=== PATIENT | female | born 1990 | race Caucasian/White ===

== ENCOUNTER 2016-09-18 12:00 | Emergency (ER) | payer OTHER ==
[2016-09-18 12:08] VITALS: O2SAT 100
[2016-09-18] MEDS ORDERED: TYLENOL 325 MG PO ONE (12:16)
[2016-09-18] MEDS ORDERED: TYLENOL 325 MG ONE (12:22)
--- NOTE | 2016-09-18 12:24 | ERPHSYRPT ---
- History of Present Illness Time Seen by Provider: 09/18/16 12:11 Source: patient Exam Limitations: no limitations Patient Subjective Stated Complaint: pt co pain to right thumb after work, slight sweling, also co left earache for a couple days Triage Nursing Assessment: pt alert resp easy, skin w/d .pink. walked , pt has not done any treatment Physician History: 26-year-old white female arrives with complaint of pain in her right dorsal hand which is worse overlying the first metacarpal phalangeal joint symptoms since yesterday. She denies any obvious injuries. Patient also states that she has been having pain in her left ear for 3 days no fevers no nausea no vomiting not otherwise ill no injuries. Past medical history includes scoliosis and spondylolisthesis. Social history positive tobacco use. Past surgical history includes cholecystectomy and tubal ligation. Occurred: yesterday Method of Injury: unknown Quality: constant Extremities Pain Location: hand: right, thumb: right Modifying Factors: Improves With: movement Associated Symptoms: other (left ear pain), No back pain, No chills, No chest discomfort, No chest pain, No dyspnea, No fever, No jaw pain, No nausea, No neck pain, No sweating, No short of breath, No vomiting Allergies/Adverse Reactions: Sulfa (Sulfonamide Antibiotics) Allergy (Verified 09/18/16 12:10) Hx Tetanus, Diphtheria Vaccination/Date Given: Yes Hx Influenza Vaccination/Date Given: No Hx Pneumococcal Vaccination/Date Given: No Immunizations Up to Date: Yes - Review of Systems Constitutional: No Fever, No Chills Eyes: No Symptoms Ears, Nose, & Throat: Ear Pain (left ear pain), No Ear Discharge, No Hearing Changes, No Tinnitus, No Nose Pain, No Nose Congestion, No Nose Discharge, No Sinus Drainage, No Epistaxis, No Mouth Pain, No Mouth Swelling, No Loose Teeth, No Throat Pain, No Throat Swelling, No Hoarse, No Painful Swallowing, No Snoring , No Stridor Respiratory: No Cough, No Dyspnea Cardiac: No Chest Pain, No Edema, No Syncope Abdominal/Gastrointestinal: No Abdominal Pain, No Nausea, No Vomiting, No Diarrhea Genitourinary Symptoms: No Dysuria Musculoskeletal: Other (pain left hand overlying dorsal left metacarpal phalyngeal boint#1 worse with moving and palpation) Skin: No Rash Neurological: No Dizziness, No Focal Weakness, No Sensory Changes Psychological: No Symptoms Endocrine: No Symptoms All Other Systems: Reviewed and Negative - Past Medical History Pertinent Past Medical History: No Other Medical History: scoliosis, spondylolisthesis - Past Surgical History Past Surgical History: Yes (she has) Gastrointestinal: Cholecystectomy Female Surgical History: Tubal Ligation - Social History Smoking Status: Current every day smoker Exposure to second hand smoke: Yes Drug Use: none Patient Lives Alone: No Significant Family History: no pertinent family hx - Female History Hx Last Menstrual Period: september 02 - Nursing Vital Signs Nursing Vital Signs: Initial Vital Signs Temperature 97.5 F 09/18/16 12:03 Pulse Rate 62 09/18/16 12:03 Respiratory Rate 16 09/18/16 12:03 Blood Pressure 111/62 09/18/16 12:03 O2 Sat by Pulse Oximetry 100 09/18/16 12:03 Pain Scale Pain Intensity 8 - Physical Exam General Appearance: alert Eyes, Ears, Nose, Throat Exam: moist mucous membranes, other (left ear tender with palpation anterior ear near tragus small amount of cerumen in left ear both tympanic membranes visualized and non-erythematous) Neck Exam: non-tender, supple Cardiovascular/Respiratory Exam: chest non-tender, normal breath sounds, regular rate/rhythm, no respiratory distress Abdominal Exam: non-tender, No guarding Back Exam: normal inspection, No vertebral tenderness Shoulder Exam: normal inspection, non-tender, no evidence of injury, normal ROM Elbow/Forearm Exam: normal inspection, non-tender, no evidence of injury, normal ROM Wrist Exam: normal inspection, non-tender, no evidence of injury, normal ROM Hand Exam: No normal inspection (right hand with tenderness to palpation dorsally overlying first metacarpal and metacarpal phalangeal joint, pain with motion right first metacarpal phalangeal joint. Full range of motion all fingers sensation intact to all fingers radial and ulnar pulses intact and symmetrical 2 over 4 good capillary refill all fingers sensation intact to all fingers) Neuro/Tendon Exam: normal sensation, normal motor functions Mental Status Exam: alert, oriented x 3, cooperative Skin Exam: normal color, warm, dry SpO2 Interpretation: normal (100%) SpO2: 100 Oxygen Delivery: Room Air - Course Nursing assessment & vital signs reviewed: Yes - Radiology Exams Right Hand X-ray Interpretation: Discussed w/ radiologist, No Fracture, No Subluxation, Other (x-ray right hand: No bony, articular, or soft tissue abnormalities) Ordered Tests: Active Orders 24 hr Category Date Time Status Splint STAT Care 09/18/16 12:40 Active HAND (MINIMUM 3 VIEWS) Stat Exams 09/18/16 12:16 Completed Medication Summary Discontinued Medications Generic Name Dose Route Start Last Admin Trade Name Aj PRN Reason Stop Dose Admin Acetaminophen 650 mg 09/18/16 12:16 09/18/16 12:23 Tylenol 325 Mg PO 09/18/16 12:17 650 mg STAT ONE Administration Acetaminophen Confirm 09/18/16 12:22 Tylenol 325 Mg Administered 09/18/16 12:23 Dose 650 mg .ROUTE .Dropbox-MED ONE - Progress Progress: improved Progress Note: 09/18/16 12:24 26-year-old white female with history of scoliosis and spondylolisthesis she arrives with complaint of pain in her right hand overlying the dorsal right first metacarpal phalangeal joint and right first metacarpal this is worse with palpation and movement there are no obvious deformities she has full range of motion all fingers sensation intact to all fingers good capillary refill to all fingers radial and ulnar pulses are intact and symmetrical 2 over 4. She also states she's been having pain on her left ear his appears to be located in the anterior canal and along the tragus she does state that she has been swimming there is slight pain with traction of the auricle. Both tympanic membranes are visualized and reaves and intact. . Patient has not taken any Tylenol or Advil Will give patient Tylenol at her request she states she really doesn't like to take any oral medications. Will go ahead and obtain an x-ray of the patient's right hand as well. 09/18/16 12:37 X-ray patient's right hand is negative. Will arrange for a splint for the patient's right thumb. And place patient on Tylenol and Advil for pain. Will also write for Cortisporin otic suspension 4 drops left ear 4 times a day for 5 days - Departure Time of Disposition: 12:41 Departure Disposition: Home Clinical Impression: tendinitis, Pain of right thumb Otitis externa Qualifiers: Otitis externa type: unspecified type Chronicity: acute Laterality: left Qualified Code(s): H60.502 - Unspecified acute noninfective otitis externa, left ear Condition: Fair Critical Care Time: No Referrals: FIOR TAYLOR [Primary Care Provider] - Additional Instructions: Return home. Cold packs to left thumb 24-48 hours. Wear splint left thumb 48-72 hours. Cortisporin otic suspension 4 drops left ear 4 times a day for 5 days. Tylenol every 4 hours or Advil every 6 hours as needed for pain. Follow-up with your family doctor if symptoms are worse, no better in 48 hours, or persist longer than one week. Return for acute distress or for severe symptoms. Limited use right hand 48-72 hours. Stop Smoking Prescriptions: Mihai/Baci/Poly/Hc Ear Susp [Cortisporin Ear Drops 10 ml Suspension] 4 drops OT QID #1 bottle
--- NOTE | 2016-09-18 12:35 | XRAY ---
Indication: First MCP pain. No known injury. Comparison: None 3 views of the right hand obtained. No bony, articular, or soft tissue abnormalities.
[2016-09-18 13:11] VITALS: BP 117/60; PULSE 73
== END 2016-09-18 13:09 | disposition home or self-care (01) ==
LOC: ED 12:00
DX: H60.502 Unspecified acute noninfective otitis externa, left ear (principal); M77.9 Enthesopathy, unspecified; M25.541 Pain in joints of right hand; Y93.11 Activity, swimming
CPT/HCPCS: 73130; 99284; A9270-GY

== ENCOUNTER 2016-09-24 06:53 | Emergency (ER) | payer OTHER ==
[2016-09-24] MEDS ORDERED: SUBLIMAZE 100 MCG/2 ML IV ONE ×2 (07:20→09:01)
[2016-09-24] MEDS ORDERED: TORAdol 30 mg Injection IV ONE (07:20)
[2016-09-24] MEDS ORDERED: Sodium Chloride 0.9% 1000 ML 1,000 ML IV STA (07:20)
[2016-09-24] MEDS ORDERED: BENADRYL 50 MG/ML IV ONE (07:20)
[2016-09-24] MEDS ORDERED: BENADRYL 50 MG/ML ONE (07:23)
[2016-09-24] MEDS ORDERED: TORAdol 30 mg Injection ONE (07:23)
[2016-09-24] MEDS ORDERED: Sodium Chloride 0.9% 1000 ML 1,000 ML ONE (07:24)
[2016-09-24] MEDS ORDERED: SUBLIMAZE 100 MCG/2 ML ONE ×2 (07:24→08:59)
[2016-09-24 07:27] LABS: BASOPHIL % 0.2 % (0.0-0.4); Eosinophil % 1.9 % (0.00-5.0); Granulocytes % 67.2 % (36.0-66.0); Lymphocytes % 20.4 % (24.0-44.0); Mean Cell Volume 92.3 fl (78-100); Mean Corpuscular Hemoglobin 30.3 pg (26-32); Monocytes % 10.3 % (0.0-12.0); Platelet Count 313 K/mm3 (150-450); Red Blood Count 4.42 M/mm3 (4.1-5.4); Red Cell Distribution Width 12.7 % (11.5-14.0); White Blood Count 12.9 K/mm3 (4.0-10.5)
--- NOTE | 2016-09-24 07:48 | ERPHSYRPT ---
- History of Present Illness Time Seen by Provider: 09/24/16 07:06 Source: patient Patient Subjective Stated Complaint: reports onset of intense pressure diffusely in the lower abd onset about midnight last night - states that she has some dysuria - reports intercourse just before the pain also - reports discomfort within the vagina as well Triage Nursing Assessment: ambulatory to treatment area - steady gait - moves all extremities with equal strength. skin pwd - no rash/injury appreciated. resps easy - non-labored. alert/oriented - tearful affect Physician History: CC: abd pain HX; 26 y/o healthy patient of Dr Taylor with prior BTL and LMP September 02. She had intercourse in the night and had severe left lower abdominal pain starting about 30 minutes afterwards. Chronic clear discharge. 3 young children. She has pain with urination. No fever or chills. No vomiting. No hx of pain like this in the past. Pain is severe. No new sexual partners. Timing/Duration: today Activites at Onset: sexual activity Severity of Pain-Max: severe Severity of Pain-Current: severe Allergies/Adverse Reactions: Sulfa (Sulfonamide Antibiotics) Allergy (Verified 09/24/16 06:58) Home Medications: No Reportable Medications [No Reported Medications] 09/24/16 [History] Hx Tetanus, Diphtheria Vaccination/Date Given: Yes Hx Influenza Vaccination/Date Given: No Hx Pneumococcal Vaccination/Date Given: No - Review of Systems Constitutional: No Fever, No Chills Eyes: No Symptoms Ears, Nose, & Throat: No Symptoms Respiratory: No Cough Cardiac: No Chest Pain Abdominal/Gastrointestinal: Abdominal Pain (left lower), No Nausea, No Vomiting Genitourinary Symptoms: Dysuria, Vaginal Discharge (chronic), No , No Vaginal Bleeding Skin: No Rash Neurological: No Headache All Other Systems: Reviewed and Negative - Past Medical History Pertinent Past Medical History: No Other Medical History: scoliosis, spondylolisthesis - Past Surgical History Past Surgical History: Yes (she has) Gastrointestinal: Cholecystectomy Female Surgical History: Tubal Ligation - Social History Smoking Status: Current every day smoker Exposure to second hand smoke: No Drug Use: none Patient Lives Alone: No Significant Family History: no pertinent family hx - Female History Hx Last Menstrual Period: 08/03/2016 - Nursing Vital Signs Nursing Vital Signs: Initial Vital Signs Temperature 98.2 F 09/24/16 07:03 Pulse Rate 84 09/24/16 07:03 Respiratory Rate 14 09/24/16 07:03 Blood Pressure 142/81 09/24/16 07:03 O2 Sat by Pulse Oximetry 98 09/24/16 07:03 Pain Scale Pain Intensity 2 - Physical Exam General Appearance: alert, other (anxious, writhing on the bed, uncomfortable appearing) Eye Exam: PERRL/EOMI Ears, Nose, Throat Exam: moist mucous membranes Neck Exam: normal inspection, non-tender, supple Respiratory Exam: normal breath sounds, lungs clear Cardiovascular Exam: regular rate/rhythm Gastrointestinal/Abdomen Exam: soft, No tenderness, No distention, No mass, No guarding Pelvic Exam: normal external exam, adnexal tenderness (left), cervical motion tenderness (severe), other (punctate cervical eccymosis), No vaginal bleeding Back Exam: normal inspection, normal range of motion Extremity Exam: normal inspection, normal range of motion Neurologic Exam: alert, oriented x 3, cooperative, sensation nml, No motor deficits Skin Exam: warm, dry, No rash SpO2 Interpretation: normal SpO2: 98 Oxygen Delivery: Room Air - Course Nursing assessment & vital signs reviewed: Yes - Radiology Ultrasound Exam pelvic Ultrasound: Other (per RDMS: right ovary without flow consistent with torsion, free fluid around right adnexa and in RUQ. There is collapsed left ovarian cyst. ) Ordered Tests: Active Orders 24 hr Category Date Time Status Cath for Specimen-Straight STAT Care 09/24/16 07:12 Active IV Insertion STAT Care 09/24/16 07:12 Active IV Insertion-2nd Peripheral STAT Care 09/24/16 09:14 Active NPO (ED) STAT Care 09/24/16 07:12 Active Pelvic Exam Assist STAT Care 09/24/16 07:12 Active PELVIS TRANS VAGINAL [US] Stat Exams 09/24/16 07:34 Ordered CBC W DIFF Stat Lab 09/24/16 07:10 Completed CMP Stat Lab 09/24/16 07:10 Completed HCG QUALITATIVE,SERUM Stat Lab 09/24/16 07:10 Completed UA W/RFX UR CULTURE Stat Lab 09/24/16 07:30 Completed Urine Triage Profile Stat Lab 09/24/16 07:34 Completed Wet Prep Stat Lab 09/24/16 07:30 Completed Medication Summary Generic Name Dose Route Start Last Admin Trade Name Freq PRN Reason Stop Dose Admin Lactated Ringer's 1,000 mls @ 100 mls/hr 09/24/16 09:30 09/24/16 09:29 Lactated Ringers IV 10/24/16 09:29 100 mls/hr .Q10H LISA Administration Discontinued Medications Generic Name Dose Route Start Last Admin Trade Name Aj PRN Reason Stop Dose Admin Diphenhydramine HCl 25 mg 09/24/16 07:20 09/24/16 07:32 Benadryl 50 Mg/Ml IV 09/24/16 07:21 25 mg STAT ONE Administration Diphenhydramine HCl Confirm 09/24/16 07:23 Benadryl 50 Mg/Ml Administered 09/24/16 07:24 Dose 50 mg .ROUTE .STK-MED ONE Fentanyl Citrate 50 mcg 09/24/16 07:20 09/24/16 07:32 Sublimaze 100 Mcg/2 Ml IV 09/24/16 07:21 50 mcg STAT ONE Administration Fentanyl Citrate Confirm 09/24/16 07:24 Sublimaze 100 Mcg/2 Ml Administered 09/24/16 07:25 Dose 100 mcg .ROUTE .STK-MED ONE Fentanyl Citrate Confirm 09/24/16 08:59 Sublimaze 100 Mcg/2 Ml Administered 09/24/16 09:00 Dose 100 mcg .ROUTE .STK-MED ONE Fentanyl Citrate 50 mcg 09/24/16 09:01 09/24/16 09:04 Sublimaze 100 Mcg/2 Ml IV 09/24/16 09:02 50 mcg STAT ONE Administration Sodium Chloride 1,000 mls @ 999 mls/hr 09/24/16 07:20 09/24/16 07:30 Sodium Chloride 0.9% 1000 Ml IV 09/24/16 08:20 999 mls/hr .Q1H1M STA Administration Sodium Chloride Confirm 09/24/16 07:24 Sodium Chloride 0.9% 1000 Ml Administered 09/24/16 07:25 Dose 1,000 mls @ ud .ROUTE .STK-MED ONE Ketorolac Tromethamine 15 mg 09/24/16 07:20 09/24/16 07:33 Toradol 30 Mg Injection IV 09/24/16 07:21 15 mg STAT ONE Administration Ketorolac Tromethamine Confirm 09/24/16 07:23 Toradol 30 Mg Injection Administered 09/24/16 07:24 Dose 30 mg .ROUTE .STK-MED ONE Lab/Rad Data: Laboratory Result Diagrams 09/24/16 07:10 09/24/16 07:10 Laboratory Results 09/24/16 09/24/16 09/24/16 Range/Units 07:34 07:30 07:30 WBC (4.0-10.5) K/mm3 RBC (4.1-5.4) M/mm3 Hgb (12.0-16.0) gm/dl Hct (35-47) % MCV (78-100) fl MCH (26-32) pg MCHC (32-36) g/dl RDW (11.5-14.0) % Plt Count (150-450) K/mm3 MPV (6-9.5) fl Gran % (36.0-66.0) % Lymphocytes % (24.0-44.0) % Monocytes % (0.0-12.0) % Eosinophils % (0.00-5.0) % Basophils % (0.0-0.4) % Basophils # (0-0.4) Sodium (136-145) mEq/L Potassium (3.5-5.1) mEq/L Chloride (98-107) mEq/L Carbon Dioxide (21-32) mEq/L Anion Gap (5-15) MEQ/L BUN (9-20) mg/dL Creatinine (0.55-1.30) mg/dl Estimated GFR ML/MIN Glucose (70-110) MG/DL Calcium (8.5-10.1) mg/dL Total Bilirubin (0.2-1.0) mg/dL AST (15-37) U/L ALT (12-78) U/L Alkaline Phosphatase (46-116) U/L Serum Total Protein (6.4-8.2) gm/dL Albumin (3.4-5.0) g/dL Serum , Qual (Negative) Ur Collection Type CATH Urine Color YELLOW (YELLOW) Urine Appearance CLEAR (CLEAR) Urine pH 5.0 (5-6) Ur Specific [place] 1.025 (1.005-1.025) Urine Protein NEGATIVE (Negative) Urine Ketones SMALL (NEGATIVE) Urine Blood NEGATIVE (0-5) Tucker/ul Urine Nitrite NEGATIVE (NEGATIVE) Urine Bilirubin NEGATIVE (NEGATIVE) Urine Urobilinogen NORMAL (0-1) mg/dL Ur Leukocyte Esterase NEGATIVE (NEGATIVE) Urine Glucose NEGATIVE (NEGATIVE) mg/dL WBC (Wet Prep) Few RBC (Wet Prep) Few Epi Cells (Wet Prep) Moderate Bacteria (Wet Prep) Moderate Clue Cells (Wet Prep) Few Trichomonas (Wet Prep) None Seen Budding Yeast (Wet Prp) None Seen Urine Opiates Level NEG. (NEGATIVE) Ur Methadone NEG. (NEGATIVE) Urine Barbiturates NEG. (NEGATIVE) Ur Phencyclidine (PCP) NEG. (NEGATIVE) Urine Amphetamine POS. (NEGATIVE) U Benzodiazepine Level NEG. (NEGATIVE) Urine Cocaine NEG. (NEGATIVE) Urine Marijuana (THC) POS. (NEGATIVE) Chlamydia DNA (PCR) NEGATIVE N.gonorrhoeae DNA Probe NEGATIVE Specimen Received 09/24/2016 0731 09/24/16 09/24/16 09/24/16 Range/Units 07:10 07:10 07:10 WBC 12.9 H (4.0-10.5) K/mm3 RBC 4.42 (4.1-5.4) M/mm3 Hgb 13.4 (12.0-16.0) gm/dl Hct 40.8 (35-47) % MCV 92.3 (78-100) fl MCH 30.3 (26-32) pg MCHC 32.8 (32-36) g/dl RDW 12.7 (11.5-14.0) % Plt Count 313 (150-450) K/mm3 MPV 11.0 H (6-9.5) fl Gran % 67.2 H (36.0-66.0) % Lymphocytes % 20.4 L (24.0-44.0) % Monocytes % 10.3 (0.0-12.0) % Eosinophils % 1.9 (0.00-5.0) % Basophils % 0.2 (0.0-0.4) % Basophils # 0.03 (0-0.4) Sodium 141 (136-145) mEq/L Potassium 3.4 L (3.5-5.1) mEq/L Chloride 104 (98-107) mEq/L Carbon Dioxide 23.4 (21-32) mEq/L Anion Gap 16.8 H (5-15) MEQ/L BUN 12 (9-20) mg/dL Creatinine 0.78 (0.55-1.30) mg/dl Estimated GFR > 60 ML/MIN Glucose 110 (70-110) MG/DL Calcium 9.2 (8.5-10.1) mg/dL Total Bilirubin 0.60 (0.2-1.0) mg/dL AST 16 (15-37) U/L ALT 14 (12-78) U/L Alkaline Phosphatase 73 (46-116) U/L Serum Total Protein 7.7 (6.4-8.2) gm/dL Albumin 4.6 (3.4-5.0) g/dL Serum , Qual NEGATIVE (Negative) Ur Collection Type Urine Color (YELLOW) Urine Appearance (CLEAR) Urine pH (5-6) Ur Specific [place] (1.005-1.025) Urine Protein (Negative) Urine Ketones (NEGATIVE) Urine Blood (0-5) Tucker/ul Urine Nitrite (NEGATIVE) Urine Bilirubin (NEGATIVE) Urine Urobilinogen (0-1) mg/dL Ur Leukocyte Esterase (NEGATIVE) Urine Glucose (NEGATIVE) mg/dL WBC (Wet Prep) RBC (Wet Prep) Epi Cells (Wet Prep) Bacteria (Wet Prep) Clue Cells (Wet Prep) Trichomonas (Wet Prep) Budding Yeast (Wet Prp) Urine Opiates Level (NEGATIVE) Ur Methadone (NEGATIVE) Urine Barbiturates (NEGATIVE) Ur Phencyclidine (PCP) (NEGATIVE) Urine Amphetamine (NEGATIVE) U Benzodiazepine Level (NEGATIVE) Urine Cocaine (NEGATIVE) Urine Marijuana (THC) (NEGATIVE) Chlamydia DNA (PCR) N.gonorrhoeae DNA Probe Specimen Received - Progress Progress Note: 09/24/16 07:47 Will get pelvic sono to rule out ovarian torsion. 09/24/16 09:03 Reports last meth use one week ago. THC last night. Last ate meal last evening about 12 hours ago. Sip of liquid this AM. Explained ovarian torsion and need for OR and possible removal of ovary. Spoke to Dr Grove general surgeon who advised transfer to outreach director. Paged [facility] one call outreach director for transfer to [facility]. 09/24/16 09:44 Called [facility] at 09:10, 09:25, and 09:40. Apparently they thought Dr Stern was plant taxonomy teacher for outreach director but he is actually out of town. They are finding who is plant taxonomy teacher. 09/24/16 10:04 The [facility] call reached boat painter plant taxonomy teacher. She accepts transfer to [facility]. Ambulance here. Counseled pt/family regarding: lab results, diagnosis, need for follow-up, rad results - Departure Time of Disposition: 10:04 Departure Disposition: Transfer (gynecology) Clinical Impression: Acute pelvic pain, female, Torsion of right ovary and ovarian pedicle, Polysubstance abuse Condition: Fair Critical Care Time: Yes Critical Care Time(excluding separately billable procedures): 30-74 minutes Referrals: FIOR TAYLOR [Primary Care Provider] -
[2016-09-24 07:49] LABS: ALBUMIN 4.6 g/dL (3.4-5.0); ALKALINE PHOSPHATASE 73 U/L (46-116); ANION GAP 16.8 MEQ/L (5-15); BLOOD UREA NITROGEN 12 mg/dL (9-20); CHLORIDE 104 mEq/L (98-107); Carbon Dioxide 23.4 mEq/L (21-32); Glucose 110 MG/DL (70-110); Potassium 3.4 mEq/L (3.5-5.1); SGOT/AST 16 U/L (15-37); SGPT/ALT 14 U/L (12-78); SODIUM 141 mEq/L (136-145); Total Protein 7.7 gm/dL (6.4-8.2)
[2016-09-24 07:52] LABS: Bilirubin NEGATIVE (NEGATIVE); Blood NEGATIVE Ery/ul (0-5); Collection Type CATH; Glucose NEGATIVE (NEGATIVE); Leukocyte Esterase NEGATIVE (NEGATIVE)
[2016-09-24 07:53] LABS: ADD URINE CULTURE? NO (NO); Bacteria Moderate; COMPLETE URINE MICROSCOPIC? NO; Clue Cells Few; Trichomonas None Seen; Yeast None Seen
[2016-09-24 09:05] LABS: CHLAMYDIA DNA NEGATIVE
[2016-09-24] MEDS ORDERED: Lactated Ringers 1,000 ML IV ONE (09:27)
[2016-09-24 09:30] VITALS: BP 126/74
[2016-09-24] MEDS ORDERED: Lactated Ringers 1,000 ML IV SCH (09:30)
[2016-09-24 09:58] VITALS: PULSE 62
[2016-09-24 10:05] VITALS: O2SAT 98
--- NOTE | 2016-09-25 09:41 | XRAY ---
Indication: Pelvic pain. Two-dimensional transvaginal pelvic ultrasound was performed. Comparison: October 07, 2007. Uterus is again anteverted today measuring 9.2 x 4.9 x 4.5 cm. A few tiny nabothian cysts in the lower uterine segment. Remaining myometrium homogeneous. Endometrial stripe measures 15.1 mm. No endometrial cavity mass or fluid collection. Right ovary measures 2.5 x 2.9 x 3.0 cm and the left measures 3.1 x 2.1 x 3.1 cm. A few follicular cysts bilaterally and normal left ovary perfusion. No perfusion seen of the right ovary. There is small free fluid in Morison's pouch and right adnexa. Additional fluid seen in the cul-de-sac appearing slightly echogenic/complex. Impression: 1. No perfusion documented in the right ovary. Rule out torsion. Free fluid may or may not be related. 2. Uterine nabothian cysts. Comment: Preliminary report was given.
== END 2016-09-24 10:31 | disposition short-term general hospital (02) ==
LOC: ED 06:53
DX: R10.2 Pelvic and perineal pain (principal); N83.511 Torsion of right ovary and ovarian pedicle; F19.10 Other psychoactive substance abuse, uncomplicated
CPT/HCPCS: 36000; 36415; 76830; 80053; 80307; 81002; 84703; 85025; 86850; 86900; 86901; 87210; 87490; 87590; 96360; 96361; 96374; 96375; 96376; 99285; J1200; J1885; J3010; P9612

== ENCOUNTER 2016-10-31 09:45 | Emergency (ER) | payer OTHER ==
[2016-10-31 10:00] VITALS: O2SAT 98
--- NOTE | 2016-10-31 10:05 | ERPHSYRPT ---
- History of Present Illness Time Seen by Provider: 10/31/16 09:59 Source: patient Exam Limitations: no limitations Physician History: The patient is a 26-year-old female who complains of left hip pain that began shortly after having intercourse with her 2 nights ago. It now hurts for her to move her left leg. It hurts for her to walk. She is using her mother's crutches. She took Tylenol yesterday without relief. Method of Injury: other (sexual intercourse) Occurred: days ago (2) Quality: constant, aching Severity of Pain-Max: moderate Severity of Pain-Current: moderate Lower Extremities Pain: hip: left Modifying Factors: Improves With: nothing Associated Symptoms: none Allergies/Adverse Reactions: Sulfa (Sulfonamide Antibiotics) Allergy (Verified 10/31/16 10:00) Home Medications: No Reportable Medications [No Reported Medications] 09/24/16 [History] Hx Tetanus, Diphtheria Vaccination/Date Given: Yes Hx Influenza Vaccination/Date Given: No Hx Pneumococcal Vaccination/Date Given: No - Review of Systems Constitutional: No Fever, No Chills Eyes: No Symptoms Ears, Nose, & Throat: No Symptoms Respiratory: No Cough, No Dyspnea Cardiac: No Chest Pain, No Edema, No Syncope Abdominal/Gastrointestinal: No Abdominal Pain, No Nausea, No Vomiting, No Diarrhea Genitourinary Symptoms: No Dysuria Musculoskeletal: No Back Pain, No Neck Pain Skin: No Rash Neurological: No Dizziness, No Focal Weakness, No Sensory Changes Psychological: No Symptoms Endocrine: No Symptoms Hematologic/Lymphatic: No Symptoms Immunological/Allergic: No Symptoms All Other Systems: Reviewed and Negative - Past Medical History Pertinent Past Medical History: No Other Medical History: scoliosis, spondylolisthesis - Past Surgical History Past Surgical History: Yes (she has) Gastrointestinal: Cholecystectomy Female Surgical History: Tubal Ligation - Social History Smoking Status: Current every day smoker Exposure to second hand smoke: No Drug Use: none Patient Lives Alone: No Significant Family History: no pertinent family hx - Physical Exam General Appearance: alert Eyes, Ears, Nose, Throat Exam: moist mucous membranes Neck Exam: non-tender, supple Cardiovascular/Respiratory Exam: chest non-tender, normal breath sounds, regular rate/rhythm, no respiratory distress Gastrointestinal/Abdominal Exam: non-tender, guarding Back Exam: normal inspection, No vertebral tenderness Hips Exam: right: non-tender, normal inspection, normal range of motion, left: pain, soft tissue tenderness Legs Exam: left leg: pain (left anterior thigh), soft tissue tenderness Knees Exam: bilateral knee: non-tender, normal inspection Ankle Exam: bilateral ankle: non-tender, normal inspection Foot Exam: bilateral foot: non-tender, normal inspection Neuro/Tendon Exam: normal sensation, normal motor functions Mental Status Exam: alert, oriented x 3, cooperative Skin Exam: normal color, warm, dry SpO2 Interpretation: normal - Progress Progress: improved Counseled pt/family regarding: diagnosis - Departure Time of Disposition: 10:09 Departure Disposition: Home Clinical Impression: Groin injury Condition: Stable Critical Care Time: No Referrals: FIOR TAYLOR [Primary Care Provider] - Additional Instructions: You have a groin injury that it was related to intercourse. This likely is muscle strain. Apply ice to the area 2-3 times a day for 2-3 days. Take ibuprofen 800 mg every 8 hours as needed. You were given Toradol 60 mg IM in the ER. Follow-up in one to 2 days if no improvement. You may continue to use your crutches for comfort as needed.
[2016-10-31] MEDS ORDERED: TORAdol 30 mg Injection IM ONE (10:11)
[2016-10-31] MEDS ORDERED: TORAdol 30 mg Injection ONE (10:14)
[2016-10-31 10:21] VITALS: BP 142/80; PULSE 80
== END 2016-10-31 10:24 | disposition home or self-care (01) ==
LOC: ED 09:45
DX: S39.91XA Unspecified injury of abdomen, initial encounter (principal); M25.552 Pain in left hip
CPT/HCPCS: 96372; 99284; J1885

== ENCOUNTER 2019-02-03 15:00 | Emergency (ER) | payer OTHER ==
--- NOTE | 2019-02-03 15:15 | ERPHSYRPT ---
- History of Present Illness Time Seen by Provider: 02/03/19 15:10 Historian: patient Exam Limitations: no limitations Patient Subjective Stated Complaint: UTI/ lower abdominal pain/ lower back pain Triage Nursing Assessment: Patient ambulated back to ED and transferred self to bed. Patient A+O X3. Patient's skin pink warm and dry. Patient states she has been having lower abdominal pain/back pain 11/28 since Sunday. Patient states she is having frequency and urgency with pain. Patient has been taking AZO since Sunday. Patient states she has been vomiting and having fever. Physician History: 29 y/o white female presents with 3 day h/o worsening suprapubic and bilat flank pain. denies vomiting and diarrhea. has subjective fever. denies vaginal discharge. has had frequency and urgency. pt states has h/o ruptured ovarian cysts. Timing/Duration: day(s) (3) Abdominal Pain Onset Location: suprapubic Pain Radiation: flank (bilat) Severity of Pain-Max: moderate Severity of Pain-Current: moderate Modifying Factors: Improves With: urinating. Worsens With: vomiting Associated Symptoms: nausea, No diarrhea, No fever/chills, No vomiting Previous symptoms: same symptoms as today Allergies/Adverse Reactions: Sulfa (Sulfonamide Antibiotics) Allergy (Verified 02/03/19 15:05) Hx Tetanus, Diphtheria Vaccination/Date Given: No Hx Influenza Vaccination/Date Given: No Hx Pneumococcal Vaccination/Date Given: No Immunizations Up to Date: Yes - Review of Systems Constitutional: No Symptoms Eyes: No Symptoms Ears, Nose, & Throat: No Symptoms Respiratory: No Symptoms Cardiac: No Symptoms Abdominal/Gastrointestinal: Abdominal Pain (suprapubic), Nausea Genitourinary Symptoms: Frequency, Urgency, Flank Pain Musculoskeletal: No Symptoms Skin: No Symptoms Neurological: No Symptoms Psychological: No Symptoms Endocrine: No Symptoms Hematologic/Lymphatic: No Symptoms Immunological/Allergic: No Symptoms All Other Systems: Reviewed and Negative - Past Medical History Pertinent Past Medical History: No Neurological History: No Pertinent History ENT History: No Pertinent History Cardiac History: No Pertinent History Respiratory History: No Pertinent History Endocrine Medical History: No Pertinent History Musculoskeletal History: No Pertinent History GI Medical History: No Pertinent History History: No Pertinent History Psycho-Social History: No Pertinent History Female Reproductive Disorders: No Pertinent History Other Medical History: scoliosis, spondylolisthesis - Past Surgical History Past Surgical History: Yes (she has) Neuro Surgical History: No Pertinent History Cardiac: No Pertinent History Respiratory: No Pertinent History Gastrointestinal: Cholecystectomy Genitourinary: No Pertinent History Musculoskeletal: No Pertinent History Female Surgical History: Tubal Ligation - Social History Smoking Status: Current every day smoker How long have you smoked: years Exposure to second hand smoke: Yes Drug Use: marijuana Patient Lives Alone: No Significant Family History: no pertinent family hx - Female History Hx Last Menstrual Period: Jan 19 Hx Now: No - Nursing Vital Signs Nursing Vital Signs: Initial Vital Signs Temperature 97.8 F 02/03/19 15:06 Pulse Rate 106 H 02/03/19 15:06 Respiratory Rate 18 02/03/19 15:06 Blood Pressure 115/88 02/03/19 15:06 O2 Sat by Pulse Oximetry 98 02/03/19 15:06 Pain Scale Pain Intensity 5 - Physical Exam General Appearance: mild distress, alert, anxiety, thin Eye Exam: PERRL/EOMI, eyes nml inspection Ears, Nose, Throat Exam: normal ENT inspection, moist mucous membranes Neck Exam: normal inspection, non-tender, supple, full range of motion Respiratory Exam: normal breath sounds, lungs clear, airway intact, No chest tenderness, No respiratory distress Cardiovascular Exam: regular rate/rhythm, normal heart sounds, normal peripheral pulses Gastrointestinal/Abdomen Exam: soft, normal bowel sounds, tenderness (mild suprapubic), guarding, No rebound Pelvic Exam: not done Back Exam: normal inspection, normal range of motion, No CVA tenderness, No vertebral tenderness Extremity Exam: normal inspection, normal range of motion, pelvis stable Neurologic Exam: alert, oriented x 3, 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, 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 Skin Exam: normal color, warm, dry Lymphatic Exam: No adenopathy SpO2 Interpretation: normal SpO2: 98 O2 Delivery: Room Air Ordered Tests: Active Orders 24 hr Category Date Time Status IV Insertion STAT Care 02/03/19 16:01 Active ABDOMEN AND PELVIS W/0 CONTRAS [CT] Stat Exams 02/03/19 16:02 Completed AMYLASE Stat Lab 02/03/19 16:01 Completed CBC W DIFF Stat Lab 02/03/19 16:01 Completed CMP Stat Lab 02/03/19 16:01 Completed CULTURE,URINE Stat Lab 02/03/19 16:14 Received HCG,QUALITATIVE URINE Stat Lab 02/03/19 16:14 Completed LIPASE Stat Lab 02/03/19 16:01 Completed Lactic Acid Stat Lab 02/03/19 16:10 Completed Manual Differential NC Stat Lab 02/03/19 16:01 Completed UA W/RFX UR CULTURE Stat Lab 02/03/19 16:14 Completed Medication Summary Discontinued Medications Generic Name Dose Route Start Last Admin Trade Name Chrisq PRN Reason Stop Dose Admin Ciprofloxacin 500 mg 02/03/19 16:55 02/03/19 17:02 Cipro 500 Mg PO 02/03/19 16:56 500 mg STAT ONE Administration Ciprofloxacin Confirm 02/03/19 17:00 Cipro 500 Mg Administered 02/03/19 17:01 Dose 500 mg .ROUTE .STK-MED ONE Hydromorphone HCl 0.5 mg 02/03/19 16:01 02/03/19 16:09 Hydromorphone 1 Mg/Ml Ampule IV 02/03/19 16:02 0.5 mg STAT ONE Administration Hydromorphone HCl Confirm 02/03/19 16:06 Hydromorphone 1 Mg/Ml Ampule Administered 02/03/19 16:07 Dose 1 mg .ROUTE .STK-MED ONE Sodium Chloride 1,000 mls @ 999 mls/hr 02/03/19 16:01 02/03/19 17:26 Sodium Chloride 0.9% 1000 Ml IV 02/03/19 17:01 Infused .Q1H1M STA Infusion Sodium Chloride Confirm 02/03/19 16:06 Sodium Chloride 0.9% 1000 Ml Administered 02/03/19 16:07 Dose 1,000 mls @ ud .ROUTE .STK-MED ONE Ceftriaxone Sodium/Dextrose 1 g in 50 mls @ 100 mls/hr 02/03/19 16:53 17:27 Rocephin 1 Gm-D5w 50 Ml Bag IV 02/03/19 17:22 Infused STAT STA Infusion Ceftriaxone Sodium/Dextrose Confirm 02/03/19 17:01 Rocephin 1 Gm-D5w 50 Ml Bag Administered 02/03/19 17:02 Dose 1 g in 50 mls @ ud IV .STK-MED ONE Ondansetron HCl 4 mg 02/03/19 16:01 02/03/19 16:09 Zofran 4 Mg/2 Ml Vial IV 02/03/19 16:02 4 mg STAT ONE Administration Ondansetron HCl Confirm 02/03/19 16:06 Zofran 4 Mg/2 Ml Vial Administered 02/03/19 16:07 Dose 4 mg .ROUTE .STK-MED ONE Lab/Rad Data: Laboratory Result Diagrams 02/03/19 16:01 02/03/19 16:01 Laboratory Results 02/03/19 02/03/19 02/03/19 Range/Units 16:14 16:14 16:10 WBC (4.0-10.5) K/mm3 RBC (4.1-5.4) M/mm3 Hgb (12.0-16.0) gm/dl Hct (35-47) % MCV (78-100) fl MCH (26-32) pg MCHC (32-36) g/dl RDW (11.5-14.0) % Plt Count (150-450) K/mm3 MPV (6-9.5) fl Sodium (137-145) mmol/L Potassium (3.5-5.1) mmol/L Chloride (98-107) mmol/L Carbon Dioxide (22-30) mmol/L Anion Gap (5-15) MEQ/L BUN (7-17) mg/dL Creatinine (0.52-1.04) mg/dL Estimated GFR ML/MIN Glucose (74-106) mg/dL Lactic Acid 1.4 (0.4-2.0) Calcium (8.4-10.2) mg/dL Total Bilirubin (0.2-1.3) mg/dL AST (14-36) U/L ALT (0-35) U/L Alkaline Phosphatase (38-126) U/L Serum Total Protein (6.3-8.2) g/dL Albumin (3.5-5.0) g/dL Amylase (30-110) U/L Lipase (23-300) U/L Urine Color THIAGO (YELLOW) Urine Appearance CLOUDY (CLEAR) Urine pH 5.0 (5-6) Ur Specific [place] 1.009 (1.005-1.025) Urine Protein 100 (Negative) Urine Ketones SMALL (NEGATIVE) Urine Blood MODERATE (0-5) Tucker/ul Urine Nitrite NEGATIVE (NEGATIVE) Urine Bilirubin NEGATIVE (NEGATIVE) Urine Urobilinogen NEGATIVE (0-1) mg/dL Ur Leukocyte Esterase LARGE (NEGATIVE) Urine WBC (Auto) >100 (0-5) /HPF Urine RBC (Auto) 16-25 (0-2) /HPF U Epithel Cells (Auto) MANY (FEW) /HPF Urine Bacteria (Auto) MODERATE (NEGATIVE) /HPF Urine Mucus (Auto) SLIGHT (NEGATIVE) /HPF Urine Culture Reflexed YES (NO) Urine Glucose NEGATIVE (NEGATIVE) mg/dL Urine HCG, Qual NEGATIVE (Negative) 02/03/19 02/03/19 Range/Units 16:01 16:01 WBC 15.5 H (4.0-10.5) K/mm3 RBC 4.53 (4.1-5.4) M/mm3 Hgb 13.9 (12.0-16.0) gm/dl Hct 41.9 (35-47) % MCV 92.5 (78-100) fl MCH 30.7 (26-32) pg MCHC 33.2 (32-36) g/dl RDW 13.4 (11.5-14.0) % Plt Count 288 (150-450) K/mm3 MPV 11.2 H (6-9.5) fl Sodium 137 (137-145) mmol/L Potassium 3.8 (3.5-5.1) mmol/L Chloride 99 (98-107) mmol/L Carbon Dioxide 21 L (22-30) mmol/L Anion Gap 20.2 H (5-15) MEQ/L BUN 15 (7-17) mg/dL Creatinine 1.61 H (0.52-1.04) mg/dL Estimated GFR 40.8 ML/MIN Glucose 79 (74-106) mg/dL Lactic Acid (0.4-2.0) Calcium 9.9 (8.4-10.2) mg/dL Total Bilirubin 0.80 (0.2-1.3) mg/dL AST 33 (14-36) U/L ALT 13 (0-35) U/L Alkaline Phosphatase 94 (38-126) U/L Serum Total Protein 8.2 (6.3-8.2) g/dL Albumin 4.7 (3.5-5.0) g/dL Amylase 48 (30-110) U/L Lipase 24 (23-300) U/L Urine Color (YELLOW) Urine Appearance (CLEAR) Urine pH (5-6) Ur Specific [place] (1.005-1.025) Urine Protein (Negative) Urine Ketones (NEGATIVE) Urine Blood (0-5) Tucker/ul Urine Nitrite (NEGATIVE) Urine Bilirubin (NEGATIVE) Urine Urobilinogen (0-1) mg/dL Ur Leukocyte Esterase (NEGATIVE) Urine WBC (Auto) (0-5) /HPF Urine RBC (Auto) (0-2) /HPF U Epithel Cells (Auto) (FEW) /HPF Urine Bacteria (Auto) (NEGATIVE) /HPF Urine Mucus (Auto) (NEGATIVE) /HPF Urine Culture Reflexed (NO) Urine Glucose (NEGATIVE) mg/dL Urine HCG, Qual (Negative) - Progress Progress: improved, pain not gone completely, re-examined Progress Note: 02/03/19 17:31 ct abd/pelvis-appendicolith without acute appendicitis. no acute process Counseled pt/family regarding: lab results, diagnosis, need for follow-up, rad results - Departure Departure Disposition: Home Clinical Impression: UTI (urinary tract infection) Condition: Stable Critical Care Time: No Referrals: FIOR TAYLOR [Primary Care Provider] - Additional Instructions: drink plenty of fluids. tylenol and ibuprofen for fever and pain. follow up with primary doctor for persistent symptoms Prescriptions: Ciprofloxacin [Cipro 500 MG] 500 mg PO BID #20 tablet
[2019-02-03] MEDS ORDERED: Sodium Chloride 0.9% 1000 ML 1,000 ML IV STA (16:01)
[2019-02-03] MEDS ORDERED: Zofran 4 MG/2 ML VIAL IV ONE (16:01)
[2019-02-03] MEDS ORDERED: Hydromorphone 1 mg/ml Ampule IV ONE (16:01)
[2019-02-03] MEDS ORDERED: Hydromorphone 1 mg/ml Ampule ONE (16:06)
[2019-02-03] MEDS ORDERED: Zofran 4 MG/2 ML VIAL ONE (16:06)
[2019-02-03] MEDS ORDERED: Sodium Chloride 0.9% 1000 ML 1,000 ML ONE (16:06)
[2019-02-03 16:17] LABS: Hematocrit 41.9 % (35-47); Hemoglobin 13.9 gm/dl (12.0-16.0); Mean Cell Volume 92.5 fl (78-100); Mean Corpuscular Hemoglobin 30.7 pg (26-32); Mean Corpuscular Hgb Concent. 33.2 g/dl (32-36); Mean Platelet Volume 11.2 fl (6-9.5); Platelet Count 288 K/mm3 (150-450); Red Blood Count 4.53 M/mm3 (4.1-5.4); Red Cell Distribution Width 13.4 % (11.5-14.0); White Blood Count 15.5 K/mm3 (4.0-10.5)
[2019-02-03 16:22] LABS: ALBUMIN 4.7 g/dL (3.5-5.0); ANION GAP 20.2 MEQ/L (5-15); BILIRUBIN,TOTAL 0.8 mg/dL (0.2-1.3); Calcium 9.9 mg/dL (8.4-10.2); Creatinine 1 1.61 mg/dL (0.52-1.04); Potassium 3.8 mmol/L (3.5-5.1); Total Protein 8.2 g/dL (6.3-8.2)
[2019-02-03 16:23] LABS: Appearance CLOUDY (CLEAR); Bacteria MODERATE /HPF (NEGATIVE); Bilirubin NEGATIVE (NEGATIVE); Blood MODERATE Ery/ul (0-5); Epithelial Cells MANY /HPF (FEW); Glucose NEGATIVE (NEGATIVE); Ketones SMALL (NEGATIVE); Leukocyte Esterase LARGE (NEGATIVE); Mucus SLIGHT /HPF (NEGATIVE); Nitrite NEGATIVE (NEGATIVE); Protein,Urine Dip 100 (Negative); Specific Gravity 1.009 (1.005-1.025); Urobilinogen NEGATIVE mg/dL (0-1); WBC >100 /HPF (0-5)
[2019-02-03] MEDS ORDERED: ROCEPHIN 1 Gm-D5w 50 ml Bag** 1 G/50 ML IVPB IV STA (16:53)
[2019-02-03] MEDS ORDERED: Cipro 500 MG PO ONE (16:55)
[2019-02-03] MEDS ORDERED: Cipro 500 MG ONE (17:00)
[2019-02-03] MEDS ORDERED: ROCEPHIN 1 Gm-D5w 50 ml Bag** 1 G/50 ML IVPB IV ONE (17:01)
--- NOTE | 2019-02-03 17:27 | XRAY ---
Indication: Low back and abdomen pain. UTI. Multiple contiguous axial images obtained through abdomen and pelvis without contrast as ordered. Comparison: None Lung bases are clear. Heart is not enlarged. Noncontrasted stomach and bowel loops appear nonobstructed. Appendix demonstrates appendicolith without appendicitis. Mild sigmoid diverticulosis. Previous cholecystectomy. No free fluid/air. Remaining liver, pancreas, spleen, adrenal glands, kidneys, ureters, bladder, uterus, and aorta appear unremarkable for noncontrast exam. Osseous structures demonstrates bilateral L5 spondylolysis with 1 cm spondylolisthesis. Impression: 1. Appendicolith without gross acute appendicitis on this noncontrast exam. 2. Sigmoid diverticulosis. 3. Bilateral L5 spondylolysis with grade 2 spondylolisthesis. CTDI 2.60
[2019-02-03 17:33] VITALS: O2SAT 98
[2019-02-03] MEDS ORDERED: TORAdol 30 mg Injection IV ONE (17:34)
[2019-02-03] MEDS ORDERED: TORAdol 30 mg Injection ONE (17:36)
[2019-02-03 17:54] LABS: BAND 9 % (0.0-2.0); Lymphocytes 11 % (24-44); Monocyte 5 % (0.0-12.0); Neutrophils 75 % (36.0-66.0); Total Cells Counted 100
[2019-02-03 17:55] LABS: Platelet Estimate NORMAL (NORMAL)
[2019-02-03 18:00] VITALS: BP 111/61; PULSE 102
== END 2019-02-03 18:01 | disposition home or self-care (01) ==
LOC: ED 15:00
DX: N39.0 Urinary tract infection, site not specified (principal); R10.30 Lower abdominal pain, unspecified; M54.5 Low back pain; R35.0 Frequency of micturition; R39.15 Urgency of urination
CPT/HCPCS: 36000; 36415; 74176; 80053; 81001; 82150; 83605; 83690; 84703; 85025; 87077; 87086; 87186; 96360; 96365; 96374; 96375; 99284; J0696; J1170; J1885; J2405; A9270-GY

== ENCOUNTER 2021-07-24 12:19 | Emergency (ER) | payer OTHER ==
[2021-07-24 12:34] VITALS: BP 102/78; PULSE 74; O2SAT 96
--- NOTE | 2021-07-24 12:56 | ERPHSYRPT ---
- History of Present Illness Source: patient Exam Limitations: no limitations Patient Subjective Stated Complaint: pt reports exposure to poison [place] or [place] 2 days ago she noticed a red raised itchy rash starting on her chest and spreading now to her face, neck, and groin. pt denies any pain, shortness of breath. Triage Nursing Assessment: pt is aox3, pupils perrl, afebrile, resps easy and non labored, cap refill < 3 seconds, pt skin pink warm dry. diffuse red rasied rash with draining vesicles. pt with slight swelling to the right under eye. Physician History: 31 yo wf w diffuse, pruritic rash x 2 days. [place] the day [place] the park 2 [place]. No other symptoms at this time. Timing/Duration: day(s) (2 days) Quality: itchy Location: generalized Possible Causes: other (Poison [place]ac[place]) Associated Symptoms: rash, No blisters, No change in skin texture, No difficulty breathing, No edema, No fever, No flushing, No headache, No hives, No malaise, No nasal congestion, No numbness, No pallor, No paresthesia, No petechiae, No sore throat, No swelling/mass/lumps, No tingling Allergies/Adverse Reactions: Sulfa (Sulfonamide Antibiotics) Allergy (Verified 07/24/21 12:34) Hx Tetanus, Diphtheria Vaccination/Date Given: Yes Hx Influenza Vaccination/Date Given: No Hx Pneumococcal Vaccination/Date Given: No Immunizations Up to Date: Yes Travel Risk - International Travel Have you traveled outside of the country in past 3 weeks: No - Coronavirus Screening Are you exhibiting any of the following symptoms?: No Close contact with a COVID-19 positive Pt in past 14-21 Days: No - Vaccine Status Have you recieved a Covid-19 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: 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: [employer] - Vaccination Dates Date of 2cond Vaccination (if applicable): unk - Review of Systems Constitutional: No Symptoms Eyes: No Symptoms Ears, Nose, & Throat: No Symptoms Respiratory: No Symptoms Cardiac: No Symptoms Abdominal/Gastrointestinal: No Symptoms Genitourinary Symptoms: No Symptoms Musculoskeletal: No Symptoms Skin: Rash Neurological: No Symptoms Psychological: No Symptoms Endocrine: No Symptoms Hematologic/Lymphatic: No Symptoms - Past Medical History Pertinent Past Medical History: No Neurological History: No Pertinent History ENT History: No Pertinent History Cardiac History: No Pertinent History Respiratory History: No Pertinent History Endocrine Medical History: No Pertinent History Musculoskeletal History: No Pertinent History GI Medical History: No Pertinent History History: No Pertinent History Psycho-Social History: No Pertinent History Female Reproductive Disorders: No Pertinent History Other Medical History: scoliosis, spondylolisthesis - Past Surgical History Past Surgical History: Yes (she has) Neuro Surgical History: No Pertinent History Cardiac: No Pertinent History Respiratory: No Pertinent History Gastrointestinal: Cholecystectomy Genitourinary: No Pertinent History Musculoskeletal: No Pertinent History Female Surgical History: Tubal Ligation - Social History Smoking Status: Current every day smoker How long have you smoked: years Exposure to second hand smoke: Yes Drug Use: none Patient Lives Alone: No Significant Family History: no pertinent family hx - Female History Hx Last Menstrual Period: 07/20/21 Hx Now: No - Nursing Vital Signs Nursing Vital Signs: Initial Vital Signs Temperature 98 F 07/24/21 12:25 Pulse Rate 74 07/24/21 12:25 Respiratory Rate 18 07/24/21 12:25 Blood Pressure 102/78 07/24/21 12:25 O2 Sat by Pulse Oximetry 97 07/24/21 12:25 Pain Scale Pain Intensity 0 WNL - Physical Exam General Appearance: no apparent distress Eye Exam: PERRL/EOMI, eyes nml inspection Ears, Nose, Throat Exam: normal ENT inspection, TMs normal, pharynx normal, moist mucous membranes Neck Exam: normal inspection, non-tender, supple, full range of motion, No meningismus, No mass, No Brudzinski, No Kernig's, No carotid bruit Respiratory Exam: normal breath sounds, lungs clear, airway intact Cardiovascular Exam: regular rate/rhythm, normal heart sounds, normal peripheral pulses, capillary refill <2 sec, No murmur Gastrointestinal/Abdomen Exam: soft, normal bowel sounds, No tenderness Back Exam: normal inspection Extremity Exam: normal inspection Neurologic Exam: alert, oriented x 3, cooperative, 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, normal mood/affect, nml cerebellar function, nml station & gait, sensation nml, No motor deficits, No sensory deficit Skin Exam: other (Diffuse, pruritic excoriated rash, most likely poison stacie) Lymphatic Exam: No adenopathy SpO2 Interpretation: normal SpO2: 96 O2 Delivery: Room Air - Course Nursing assessment & vital signs reviewed: Yes - Progress Counseled pt/family regarding: diagnosis, need for follow-up - Departure Departure Disposition: Home Clinical Impression: Poison stacie Condition: Stable Critical Care Time: No Referrals: LIOR EDWARDS MD [Primary Care Provider] - Follow up/PCP as directed Instructions: Poison [place], Poison [place], Poison [place] (DC) Additional Instructions: [place] baths Follow up with PCP as needed Prescriptions: Hydroxyzine HCl 25 mg [Atarax 25 mg] 25 mg PO Q6-8HPRN PRN #14 tablet PRN Reason: Itching Prednisone 10 mg [Deltasone 10 mg] 10 mg PO DAILY #42 tablet
== END 2021-07-24 13:06 | disposition home or self-care (01) ==
LOC: ED 12:19
DX: L23.7 Allergic contact dermatitis due to plants, except food (principal); Z72.0 Tobacco use; Z79.52 Long term (current) use of systemic steroids
CPT/HCPCS: 99283

== ENCOUNTER 2022-11-24 11:03 | Emergency (ER) | payer OTHER ==
--- NOTE | 2022-11-24 11:11 | ERPHSYRPT ---
- History of Present Illness Time Seen by Provider: 11/24/22 11:11 Source: patient Exam Limitations: no limitations Physician History: This is a 32-year-old white female patient of Dr. Edwards who presents with shortness of air. She also has left shoulder pain after experiencing a fall 2 weeks ago. She has been seen by her primary care provider as well as [facility]. She was started on a Medrol Dosepak yesterday because of the persistent pain she is having. Last night and this morning she started having shortness of breath secondary to the pain in this area. On 11/14/2022, after her fall, she states she was supposed to have an x-ray of that left shoulder. However a thoracic spine x-ray was performed which showed no bony or soft tissue abnormality. She describes the pain as sharp and intermittent. It hurts when she takes a deep breath and that is what is causing her shortness of air. Timing/Duration: week(s) (2), intermittent, worse Severity of Dyspnea-Max: mild (To moderate with deep inspiration) Severity of Dyspnea-Current: mild (To moderate with deep inspiration) Possible Cause: no prior episodes Modifying Factors: Improves With: deep breath (Worsens pain and shortness of breath) Associated Symptoms: chest pain/discomfort (Left upper and lateral with deep inspiration), painful breathing, No calf pain, No dizziness, No productive cough Allergies/Adverse Reactions: Sulfa (Sulfonamide Antibiotics) Allergy (Verified 11/24/22 11:05) Home Medications: Methylprednisolone 4 mg [Medrol 4 mg] See Rx Instructions .ROUTE .COMPLEX 11/24/22 [History] Hx Tetanus, Diphtheria Vaccination/Date Given: Yes Hx Influenza Vaccination/Date Given: No Hx Pneumococcal Vaccination/Date Given: No Travel Risk - International Travel Have you traveled outside of the country in past 3 weeks: No - Coronavirus Screening Are you exhibiting any of the following symptoms?: No Close contact with a COVID-19 positive Pt in past 14-21 Days: No - Vaccine Status Have you recieved a Covid-19 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: 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[employer] - Vaccination Dates Date of 2cond Vaccination (if applicable): unk - Review of Systems Constitutional: No Symptoms Eyes: No Symptoms Ears, Nose, & Throat: No Symptoms Respiratory: Dyspnea (With deep inspiration) Cardiac: No Symptoms Abdominal/Gastrointestinal: No Symptoms Genitourinary Symptoms: No Symptoms Musculoskeletal: Fall, Injury (Left shoulder pain from a fall 2 weeks ago) Skin: No Symptoms Neurological: No Symptoms Psychological: No Symptoms Endocrine: No Symptoms Hematologic/Lymphatic: No Symptoms Immunological/Allergic: No Symptoms All Other Systems: Reviewed and Negative - Past Medical History Pertinent Past Medical History: No Neurological History: No Pertinent History ENT History: No Pertinent History Cardiac History: No Pertinent History Respiratory History: No Pertinent History Endocrine Medical History: No Pertinent History Musculoskeletal History: No Pertinent History GI Medical History: No Pertinent History History: No Pertinent History Psycho-Social History: No Pertinent History Female Reproductive Disorders: No Pertinent History Other Medical History: scoliosis, spondylolisthesis - Past Surgical History Past Surgical History: Yes (she has) Neuro Surgical History: No Pertinent History Cardiac: No Pertinent History Respiratory: No Pertinent History Gastrointestinal: Cholecystectomy Genitourinary: No Pertinent History Musculoskeletal: No Pertinent History Female Surgical History: Tubal Ligation - Social History Smoking Status: Current every day smoker How long have you smoked: years Exposure to second hand smoke: Yes Drug Use: none Patient Lives Alone: No Significant Family History: no pertinent family hx - Nursing Vital Signs Nursing Vital Signs: Initial Vital Signs Temperature 98.3 F 11/24/22 11:04 Pulse Rate 100 H 11/24/22 11:04 Respiratory Rate 19 11/24/22 11:04 Blood Pressure 139/105 11/24/22 11:04 O2 Sat by Pulse Oximetry 99 11/24/22 11:04 Pain Scale Pain Intensity 0 - Physical Exam General Appearance: no apparent distress, alert, anxiety, thin Eye Exam: PERRL/EOMI, eyes nml inspection Ears, Nose, Throat Exam: hearing grossly normal, normal ENT inspection, normal pharynx Neck Exam: normal inspection, non-tender, supple, full range of motion Respiratory Exam: normal breath sounds, lungs clear, respiratory distress, airway intact, No chest tenderness Cardiovascular/Chest Exam: normal heart sounds, regular rate/rhythm Abdominal/Gastrointestinal Exam: soft, normal bowel sounds, No tenderness Rectal Exam: not done Extremity Exam: pelvis stable, limited range of motion (Left shoulder with movement tenderness on palpation) Neurologic Exam: alert, oriented x 3, cooperative, director 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 as tested, normal mood/affect, nml cerebellar function, nml station & gait, sensation nml Skin Exam: normal color, warm, dry Lymphatic Exam: No adenopathy SpO2 Interpretation: normal O2 Delivery: Room Air - Course Nursing assessment & vital signs reviewed: Yes EKG Interpreted by Me: RATE (84), Sinus Rhythm, NORMAL AXIS, NORMAL INTERVALS, NORMAL QRS, NORMAL ST-T, Other (No acute ischemic changes on today's twelve-lead EKG) Ordered Tests: Active Orders 24 hr Category Date Time Status EKG-ER Only STAT Care 11/24/22 12:13 Active IV Insertion STAT Care 11/24/22 12:13 Active Pulse Oximetry (ED) STAT Care 11/24/22 12:13 Active CHEST WITHOUT CONTRAST [CT] Stat Exams 11/24/22 13:36 Completed RECONSTRUCTION [CT] Stat Exams 11/24/22 13:36 Completed CBC W DIFF Stat Lab 11/24/22 12:13 Completed CMP Stat Lab 11/24/22 12:39 Completed D-DIMER QUANTITATIVE Stat Lab 11/24/22 12:39 Completed TROPONIN Q4H Lab 11/24/22 12:39 Completed TROPONIN Q4H Lab 11/24/22 16:15 Ordered TROPONIN Q4H Lab 11/24/22 20:15 Ordered Medication Summary Discontinued Medications Generic Name Dose Route Start Last Admin Trade Name Freq PRN Reason Stop Dose Admin Orphenadrine Citrate 60 mg 11/24/22 12:14 11/24/22 12:22 Orphenadrine Citrate 60 Mg/2 Ml Vial IV 11/24/22 12:15 60 mg STAT ONE Administration Orphenadrine Citrate Confirm 11/24/22 12:22 Orphenadrine Citrate 60 Mg/2 Ml Vial Administered 11/24/22 12:23 Dose 60 mg .ROUTE .[facility] ONE Lab/Rad Data: Laboratory Result Diagrams 11/24/22 12:13 11/24/22 12:39 Laboratory Results 11/24/22 11/24/22 11/24/22 Range/Units 12:39 12:39 12:39 WBC (4.0-10.5) x10^3/uL RBC (4.1-5.4) x10^6/uL Hgb (12.0-16.0) g/dL Hct (35-47) % MCV (78-100) fL MCH (26-32) pg MCHC (32-36) g/dL RDW (11.5-14.0) % Plt Count (150-450) x10^3/uL MPV (7.5-11.0) fL Gran % (36.0-66.0) % Immature Gran % (Auto) (0.00-0.4) % Nucleat RBC Rel Count (0.00-0.1) % Eos # (Auto) (0-0.5) x10^3/uL Immature Gran # (Auto) (0.00-0.03) x10^3u/L Absolute Lymphs (auto) (1.0-4.6) x10^3/uL Absolute Monos (auto) (0.0-1.3) x10^3/uL Absolute Nucleated RBC (0.00-0.01) x10^3u/L Lymphocytes % (24.0-44.0) % Monocytes % (0.0-12.0) % Eosinophils % (0.00-5.0) % Basophils % (0.0-0.4) % Absolute Granulocytes (1.4-6.9) x10^3/uL Basophils # (0-0.4) x10^3/uL D-Dimer < 0.19 (0.0-0.50) mg/L Sodium 141 (137-145) mmol/L Potassium 4.6 (3.5-5.1) mmol/L Chloride 105 (98-107) mmol/L Carbon Dioxide 25 (22-30) mmol/L Anion Gap 15.6 H (5-15) MEQ/L BUN 9 (7-17) mg/dL Creatinine 0.58 (0.52-1.04) mg/dL Estimated GFR > 60.0 ML/MIN Glucose 95 (74-106) mg/dL Calcium 9.8 (8.4-10.2) mg/dL Total Bilirubin 0.50 (0.2-1.3) mg/dL AST 32 (14-36) U/L ALT 21 (0-35) U/L Alkaline Phosphatase 71 (38-126) U/L Troponin I < 0.012 (0.000-0.034) ng/mL Serum Total Protein 7.3 (6.3-8.2) g/dL Albumin 4.8 (3.5-5.0) g/dL 10/06/23 Range/Units 12:13 WBC 10.4 (4.0-10.5) x10^3/uL RBC 5.19 (4.1-5.4) x10^6/uL Hgb 15.8 (12.0-16.0) g/dL Hct 48.1 H (35-47) % MCV 92.7 (78-100) fL MCH 30.4 (26-32) pg MCHC 32.8 (32-36) g/dL RDW 12.7 (11.5-14.0) % Plt Count 387 (150-450) x10^3/uL MPV 10.8 (7.5-11.0) fL Gran % 69.4 H (36.0-66.0) % Immature Gran % (Auto) 0.4 (0.00-0.4) % Nucleat RBC Rel Count 0.0 (0.00-0.1) % Eos # (Auto) 0.01 (0-0.5) x10^3/uL Immature Gran # (Auto) 0.04 H (0.00-0.03) x10^3u/L Absolute Lymphs (auto) 2.35 (1.0-4.6) x10^3/uL Absolute Monos (auto) 0.76 (0.0-1.3) x10^3/uL Absolute Nucleated RBC 0.00 (0.00-0.01) x10^3u/L Lymphocytes % 22.7 L (24.0-44.0) % Monocytes % 7.3 (0.0-12.0) % Eosinophils % 0.1 (0.00-5.0) % Basophils % 0.1 (0.0-0.4) % Absolute Granulocytes 7.20 H (1.4-6.9) x10^3/uL Basophils # 0.01 (0-0.4) x10^3/uL D-Dimer (0.0-0.50) mg/L Sodium (137-145) mmol/L Potassium (3.5-5.1) mmol/L Chloride (98-107) mmol/L Carbon Dioxide (22-30) mmol/L Anion Gap (5-15) MEQ/L BUN (7-17) mg/dL Creatinine (0.52-1.04) mg/dL Estimated GFR ML/MIN Glucose (74-106) mg/dL Calcium (8.4-10.2) mg/dL Total Bilirubin (0.2-1.3) mg/dL AST (14-36) U/L ALT (0-35) U/L Alkaline Phosphatase (38-126) U/L Troponin I (0.000-0.034) ng/mL Serum Total Protein (6.3-8.2) g/dL Albumin (3.5-5.0) g/dL - Progress Progress: improved, re-examined Air Movement: good Progress Note: 11/24/22 12:34 This patient's medical issue is 1 of moderate complexity. Level complexity in the work-up performed is based on review of the patient's past medical history, review of the patient's medication list, review the patient drug allergy list, history of present illness and physical findings on examination. The work-up in this patient includes placement of intravenous line, twelve-lead EKG, D-dimer, troponin level, CBC, CMP and infusion of orphenadrine 60 mg intravenously. We will await the results of the D-dimer to determine whether or not the patient requires a CT scan of the chest with or without intravenous contrast. We will a lso perform a radiographic study of the patient's left shoulder. 11/24/22 14:53 I reviewed the results and interpreted the results of the laboratory data. There are no acute, emergent findings on her laboratory studies. Her twelve- lead EKG does not show acute ischemia. CT scan of the chest without contrast was interpreted by the radiologist and it is normal. I reviewed the impression. CT scan of the left shoulder was interpreted by the radiologist I reviewed the impression. There is no evidence of any acute fracture or dislocation. Blood Culture(s) Obtained: No Antibiotics given: No Counseled pt/family regarding: lab results, diagnosis, need for follow-up, rad results Medical Desision Making - Diagnostic Testing Diagnostic test were ordered, analyzed, and reviewed by me: Yes Radiological Interpretation: Reviewed by me, Teleradiologist Report - Risk of complications The pt has a mod risk of morbidity or mortality based on: Need for prescription drug management - Departure Departure Disposition: Home Clinical Impression: Fall with no significant injury, Left shoulder pain, Shortness of breath Condition: Stable Critical Care Time: No Referrals: LIOR EDWARDS MD [Primary Care Provider] - Follow up/PCP as directed Additional Instructions: Drink plenty fluids. Continue your steroids as prescribed. Take your prescription medication as prescribed. Follow-up with your primary care provider on 11/27/2022, to arrange an appointment in 3 to 5 days for further evaluation management including management of your pain. Prescriptions: Oxycodone HCl/Acetaminophen [Percocet 5-325 mg Tablet] 1 each PO Q12H PRN PRN #6 tablet MDD 2 PRN Reason: Moderate To Severe Pain
[2022-11-24 11:20] VITALS: RESP 19; TEMP 98.3
[2022-11-24] MEDS ORDERED: Norflex 60 MG/2 ML IV ONE (12:14)
[2022-11-24] MEDS ORDERED: Norflex 60 MG/2 ML ONE (12:22)
[2022-11-24 12:28] LABS: BASOPHIL % 0.1 % (0.0-0.4); Basophil (Absolute #) 0.01 x10^3/uL (0-0.4); Eosinophil % 0.1 % (0.00-5.0); Eosinophil (Absolute #) 0.01 x10^3/uL (0-0.5); Hematocrit 48.1 % (35-47); Hemoglobin 15.8 g/dL (12.0-16.0); IMMATURE GRAN # 0.04 x10^3u/L (0.00-0.03); IMMATURE GRAN % 0.4 % (0.00-0.4); Lymphocyte (Absolute #) 2.35 x10^3/uL (1.0-4.6); Lymphocytes % 22.7 % (24.0-44.0); Mean Cell Volume 92.7 fL (78-100); Mean Corpuscular Hemoglobin 30.4 pg (26-32); Mean Corpuscular Hgb Concent. 32.8 g/dL (32-36); Mean Platelet Volume 10.8 fL (7.5-11.0); Monocyte (Absolute #) 0.76 x10^3/uL (0.0-1.3); Monocytes % 7.3 % (0.0-12.0); Neutrophil % 69.4 % (36.0-66.0); Platelet Count 387 x10^3/uL (150-450); Red Blood Count 5.19 x10^6/uL (4.1-5.4); Red Cell Distribution Width 12.7 % (11.5-14.0); White Blood Count 10.4 x10^3/uL (4.0-10.5)
[2022-11-24 13:01] LABS: ALBUMIN 4.8 g/dL (3.5-5.0); ALKALINE PHOSPHATASE 71 U/L (38-126); ANION GAP 15.6 MEQ/L (5-15); BLOOD UREA NITROGEN 9 mg/dL (7-17); CHLORIDE 105 mmol/L (98-107); Calcium 9.8 mg/dL (8.4-10.2); Carbon Dioxide 25 mmol/L (22-30); Creatinine 1 0.58 mg/dL (0.52-1.04); EST GLOMERULAR FILTRATION RATE > 60.0 ML/MIN; Glucose 95 mg/dL (74-106); Potassium 4.6 mmol/L (3.5-5.1); SGOT/AST 32 U/L (14-36); SGPT/ALT 21 U/L (0-35); SODIUM 141 mmol/L (137-145); Total Protein 7.3 g/dL (6.3-8.2)
[2022-11-24 13:06] VITALS: O2SAT 98
--- NOTE | 2022-11-24 14:46 | XRAY ---
Indication: Left shoulder pain and short of breath following fall 2 weeks ago. Multiple contiguous axial images obtained through the chest without contrast. Comparison: None Lungs inflated and clear. Heart not enlarged. Aorta is normal in course and caliber. No pathologic mediastinal lymphadenopathy. Bony thorax including left shoulder intact. Limited upper abdomen demonstrates cholecystectomy clips. Impression: Normal CT chest without contrast exam.
--- NOTE | 2022-11-24 14:48 | XRAY ---
Indication: Left shoulder pain following fall 2 weeks ago. Sagittal, coronal, and axial reconstruction images left shoulder obtained using raw data from same-day CT chest exam. Comparison: None Normal bones, articulation, and soft tissues. CT chest reported separately. Impression: Normal CT left shoulder.
[2022-11-24] MEDS ORDERED: PERCOCET TABLET 5/325MG PO STA (14:57)
[2022-11-24] MEDS ORDERED: PERCOCET TABLET 5/325MG ONE (15:11)
[2022-11-24 15:15] VITALS: BP 105/75; PULSE 65
== END 2022-11-24 15:23 | disposition home or self-care (01) ==
LOC: ED 11:03
DX: R06.02 Shortness of breath (principal); M25.512 Pain in left shoulder; Z79.891 Long term (current) use of opiate analgesic; Z79.52 Long term (current) use of systemic steroids; Z72.0 Tobacco use
CPT/HCPCS: 36000; 36415; 71250; 76376; 80053; 84484; 85025; 85379; 93005; 94760; 96374; 99284; J2360; A9270-GY

== ENCOUNTER 2023-02-13 16:46 | Emergency (ER) | payer OTHER ==
--- NOTE | 2023-02-13 16:51 | ERPHSYRPT ---
- History of Present Illness Time Seen by Provider: 02/13/23 16:51 Source: patient Exam Limitations: no limitations Physician History: This is a 33-year-old white female patient who has had cough and wheezing type symptoms for 3 days. Her symptoms have not been improving despite the use of an albuterol inhaler. Patient denies chest pain. Patient has shortness of breath with coughing. He has no abdominal pain. She has had no nausea vomiting or diarrhea symptoms. Her daughter has similar symptoms. Cough Quality/Degree: mild, dry cough Possible Cause: no prior episodes Modifying Factors: Improves With: albuterol inhaler, coughing Associated Symptoms: cough, shortness of breath, wheezing (With coughing only), No fever, No chills, No chest pain/soreness, No sore throat Allergies/Adverse Reactions: Sulfa (Sulfonamide Antibiotics) Allergy (Verified 02/13/23 16:47) Hx Tetanus, Diphtheria Vaccination/Date Given: Yes Hx Influenza Vaccination/Date Given: No Hx Pneumococcal Vaccination/Date Given: No Travel Risk - International Travel Have you traveled outside of the country in past 3 weeks: No - Coronavirus Screening Are you exhibiting any of the following symptoms?: Yes Symptoms: Cough: New Onset, Shortness of Breath (With coughing) Close contact with a COVID-19 positive Pt in past 14-21 Days: No - Vaccine Status Have you recieved a Covid-19 vaccination: Yes 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[employer] - Vaccination Dates Date of 2cond Vaccination (if applicable): unk - Review of Systems Constitutional: No Symptoms Eyes: No Symptoms Ears, Nose, & Throat: No Symptoms Respiratory: Cough, Dyspnea (With coughing), Wheezing Cardiac: No Symptoms Abdominal/Gastrointestinal: No Symptoms Genitourinary Symptoms: No Symptoms Musculoskeletal: No Symptoms Skin: No Symptoms Neurological: No Symptoms Psychological: No Symptoms Endocrine: No Symptoms Hematologic/Lymphatic: No Symptoms Immunological/Allergic: No Symptoms All Other Systems: Reviewed and Negative - Past Medical History Pertinent Past Medical History: No Neurological History: Migraines ENT History: No Pertinent History Cardiac History: No Pertinent History Respiratory History: Asthma, Other Endocrine Medical History: No Pertinent History Musculoskeletal History: Fractures GI Medical History: No Pertinent History History: No Pertinent History Psycho-Social History: No Pertinent History Female Reproductive Disorders: No Pertinent History Other Medical History: L4-S1 fractures (s/p spinal fusion), tubal ligation, cholecystectomy, tonsillectomy - Past Surgical History Past Surgical History: Yes (she has) Neuro Surgical History: No Pertinent History Cardiac: No Pertinent History Respiratory: No Pertinent History Gastrointestinal: Cholecystectomy Genitourinary: No Pertinent History Musculoskeletal: No Pertinent History Female Surgical History: Tubal Ligation Other Surgical History: back surgery - Social History Smoking Status: Current every day smoker How long have you smoked: years Exposure to second hand smoke: Yes Drug Use: none Patient Lives Alone: No Significant Family History: no pertinent family hx - Nursing Vital Signs Nursing Vital Signs: Initial Vital Signs Temperature 98.4 F 02/13/23 16:47 Pulse Rate 97 H 02/13/23 16:47 Respiratory Rate 20 02/13/23 16:47 Blood Pressure 123/86 02/13/23 16:47 O2 Sat by Pulse Oximetry 100 02/13/23 16:47 Pain Scale Pain Intensity 0 - Physical Exam General Appearance: no apparent distress, alert, anxiety, thin Eye Exam: PERRL/EOMI, eyes nml inspection Ears, Nose, Throat Exam: normal ENT inspection, moist mucous membranes Neck Exam: normal inspection, non-tender, supple, full range of motion Respiratory Exam: airway intact, wheezing (Bilateral expiratory), No chest tenderness, No respiratory distress Cardiovascular Exam: regular rate/rhythm, normal heart sounds, normal peripheral pulses Gastrointestinal/Abdomen Exam: soft, normal bowel sounds, No tenderness Pelvic Exam: not done Rectal Exam: not done Back Exam: normal inspection, normal range of motion, No CVA tenderness, No vertebral tenderness Extremity Exam: normal inspection, normal range of motion, pelvis stable Neurologic Exam: alert, oriented x 3, cooperative, 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 as tested, normal mood/affect, nml cerebellar function, nml station & gait, sensation nml Skin Exam: normal color, warm, dry Lymphatic Exam: No adenopathy SpO2 Interpretation: normal O2 Delivery: Room Air - Course Nursing assessment & vital signs reviewed: Yes Ordered Tests: Active Orders 24 hr Category Date Time Status CHEST 1 VIEW (PORTABLE) Stat Exams 02/13/23 16:57 Taken Lab/Rad Data: Laboratory Results 02/13/23 02/13/23 Range/Units 16:50 16:50 Influenza Type A Ag NEGATIVE (NEGATIVE) Influenza Type B Ag NEGATIVE (NEGATIVE) RSV (PCR) POSITIVE (NEGATIVE) SARS-CoV-2 (PCR) NEGATIVE (NEGATIVE) Group A Strep Antibody NOT DETECTED (NEGATIVE) - Progress Progress: improved, re-examined Air Movement: good Progress Note: 02/13/23 17:32 This patient's medical issue is 1 of low complexity. Level complex in the workup performed is based on review of the patient's past medical history, review the patient's medication list, review of the patient's drug allergy list, history of present illness and physical findings on examination. The workup in this patient includes viral swabs, group A strep swab, and portable chest x-ray. 02/13/23 17:48 Chest x-ray was interpreted by me. There is no evidence of any acute cardiopulmonary process. Blood Culture(s) Obtained: No Counseled pt/family regarding: lab results, diagnosis, need for follow-up, rad results Medical Desision Making - Diagnostic Testing Diagnostic test were ordered, analyzed, and reviewed by me: Yes Radiological Interpretation: Interpreted by me - Risk of complications The pt has a mod risk of morbidity or mortality based on: Need for prescription drug management - Departure Departure Disposition: Home Clinical Impression: RSV bronchitis Condition: Stable Critical Care Time: No Referrals: LIOR EDWARDS MD [Primary Care Provider] - Follow up/PCP as directed Additional Instructions: Drink plenty of clear liquids. Avoid any exposure to any type of smoke. Take your medications as prescribed. Follow-up with your primary care provider in the next 3 to 5 days for further evaluation management. Continue your albuterol inhaler as prescribed Prescriptions: Codeine Phosphate/Guaifenesin [Codeine-Guaifen 10-100 mg/5 ml] 10 ml PO Q6H PRN #120 ml MDD 40 ml PRN Reason: Cough Prednisone 10 mg [Deltasone 10 mg] 10 mg PO TID #12 tablet
[2023-02-13 16:53] VITALS: BP 123/86; TEMP 98.4
[2023-02-13 17:42] LABS: INFLUENZA A NEGATIVE (NEGATIVE); INFLUENZA B NEGATIVE (NEGATIVE); SARS-CoV-2 Xpert Express NEGATIVE (NEGATIVE)
[2023-02-13 17:59] LABS: RESPIRATORY SYNCTIAL VIRUS POSITIVE (NEGATIVE)
[2023-02-13 18:13] VITALS: PULSE 88; RESP 16; O2SAT 99
--- NOTE | 2023-02-14 08:37 | XRAY ---
Indication: Cough. Comparison: May 03, 2022 Portable apical lordotic chest again hyperinflated and clear. Heart and mediastinal structures within normal limits. Bony thorax intact. Impression: Continued nonacute hyperinflated chest.
== END 2023-02-13 18:13 | disposition home or self-care (01) ==
LOC: ED 16:46
DX: J20.5 Acute bronchitis due to respiratory syncytial virus (principal); R05.1 Acute cough; R06.02 Shortness of breath; Z79.52 Long term (current) use of systemic steroids; Z79.891 Long term (current) use of opiate analgesic; Z72.0 Tobacco use
CPT/HCPCS: 0241U; 71045; 87651; 99283